=== PATIENT | male | born 1985 | race Two or more races ===

== ENCOUNTER 2022-04-23 03:08 | Inpatient (IN) | payer SELFPAY ==
[~2022-04-23] VITALS: Ht 172.7 cm; Wt 77.3 kg
[2022-04-23] MEDS ORDERED: pantoprazole 40 MG vial IV ONE (07:10)
[2022-04-23] MEDS ORDERED: normal saline 1000ML IV soln IVB ONE (07:10)
[2022-04-23] MEDS ORDERED: diazepam inj 5 MG/ML inj. IV ONE (07:10)
[2022-04-23] MEDS ORDERED: ondansetron/PF 4mg/2ml inj IV ONE (07:10)
[2022-04-23] MEDS: morphine 2 MG/ML inj. syringe IV PRN ×2 (07:17→07:44)
[2022-04-23] MEDS: pantoprazole 40MG/NS 100ML BAG 100 ML IV SCH (07:32)
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
--- NOTE | 2022-04-23 08:09 | NUR ---
PT IS URINATING AT THIS TIME,WILL CONT TO MONITOR .PAIN IS APPROVED AFTER THE MORPHINE DOSE.
[2022-04-23 08:55] LABS: CLARITY,URINE CLEAR (Clear); COLOR,URINE YELLOW (Yellow); GLUCOSE, URINE NEGATIVE (Neg); KETONES,URINE NEGATIVE (Neg); LEUKOCYTE ESTERASE ,URINE NEGATIVE (Neg); NITRITES, URINE NEGATIVE (Neg); OCCULT BLOOD,URINE NEGATIVE (Neg); PROTEIN,URINE NEGATIVE (Neg); UROBILINOGEN,URINE 0.2 E.U/dL (0.2-1.0)
[2022-04-23 08:59] LABS: UA COLLECTION TYPE VOIDED
[2022-04-23 09:04] LABS: BASOPHILS % (AUTO) 0.3 % (0-1); EOSINOPHILS # (AUTO) 0.2 X10'3 (0-0.9); HEMOGLOBIN 15.4 g/dl (14.0-17.9); LYMPHOCYTES % (AUTO) 15.8 % (21-51); MEAN CORPUSCULAR HEMOGLOBIN 28.3 PG (27.0-31.0); MEAN CORPUSCULAR HGB CONC 33.5 g/dL (33.0-36.5); MEAN CORPUSCULAR VOLUME 84.7 FL (78-98); MEAN PLATELET VOLUME 7.9 FL (7.4-10.4); MONOCYTES # (AUTO) 0.6 X10'3 (0-0.9); MONOCYTES % (AUTO) 9.8 % (2-12); NEUTROPHILS # (AUTO) 4.4 X10'3 (1.8-7.7); NEUTROPHILS % (AUTO) 71.1 % (42-75); PLATELET COUNT 229 X10'3 (140-440); RED BLOOD COUNT 5.44 X10'6 (4.70-6.10); WHITE BLOOD COUNT 6.2 X10'3 (4.5-11.0)
[2022-04-23 09:17] LABS: ALANINE AMINOTRANSFERASE 842 U/L (12-78); ALBUMIN 3.9 G/DL (3.4-5.0); ALBUMIN/GLOBULIN RATIO 1.2 (1.1-1.5); ALKALINE PHOSPHATASE 176 IU/L (46-116); ANION GAP 8 (8-16); ASPARTATE AMINO TRANSFERASE 708 U/L (10-37); BILIRUBIN,TOTAL 0.3 MG/DL (0.1-1.0); BLOOD UREA NITROGEN 6 MG/DL (7-18); BUN/CREATININE RATIO 7.8 (5.4-32.0); CALCIUM 8.9 MG/DL (8.5-10.1); CHLORIDE 103 MMOL/L (99-107); CREATININE 0.77 MG/DL (0.60-1.10); GLUCOSE 99 MG/DL (70-104); SODIUM 140 MMOL/L (135-145); TOTAL CARBON DIOXIDE 29.2 MMOL/L (24-32); TOTAL PROTEIN 7.2 G/DL (6.4-8.2); eGFR > 90 ML/MIN
[2022-04-23 09:32] LABS: POTASSIUM 4.6 MMOL/L (3.5-5.1)
[2022-04-23 09:33] LABS: LIPASE 3549 U/L (73-393)
[2022-04-23 09:33] LABS: URINE AMPHETAMINE SCREEN POSITIVE (Neg); URINE BARBITUATE SCREEN NEGATIVE (Neg); URINE BENZODIAZEPINES SCREEN NEGATIVE (Neg); URINE CANNABINOID SCREEN NEGATIVE (Neg); URINE COCAINE SCREEN NEGATIVE (Neg); URINE METHADONE SCREEN NEGATIVE (Neg); URINE OPIATE SCREEN POSITIVE (Neg); URINE PHENCYCLIDINE SCREEN NEGATIVE (Neg)
[2022-04-23] MEDS ORDERED: potassium CL 10mEq/100ml bag 100 ML IV PRN (10:15)
[2022-04-23] MEDS ORDERED: HYDROcodone/acetaminophen 5mg/325mg tablet PO PRN (10:15)
[2022-04-23] MEDS ORDERED: magnesium 4gm in 100ml NS 100 ML IV PRN (10:15)
[2022-04-23] MEDS ORDERED: acetaminophen 325mg tablet PO PRN (10:15)
[2022-04-23] MEDS ORDERED: ondansetron/PF 4mg/2ml inj IV PRN (10:15)
[2022-04-23] MEDS ORDERED: HYDROmorphone inj. 0.5 MG/0.5 ML DISP.SYRIN IV PRN (10:15)
[2022-04-23] MEDS ORDERED: mag hydrox/Alum hydrox/simeth 30ml oral suspension PO PRN (10:15)
[2022-04-23] MEDS ORDERED: POTASSIUM BICARB 20meq eff tab 20 MEQ TABLET.EFF PO PRN ×2 (10:15)
[2022-04-23] MEDS ORDERED: magnesium Cl slow-release 64mg tablet PO PRN (10:15)
[2022-04-23] MEDS ORDERED: magnesium hydroxide 30ml (MOM) UD suspension PO PRN (10:15)
[2022-04-23 10:26] LABS: ETHANOL < 0.010 GM/DL (0.0-0.010)
[2022-04-23] MEDS ORDERED: iohexol 350MG/ML 100ml bottle IV ONE (10:29)
[2022-04-23] MEDS: normal saline 1000ml 1,000 ML IV SCH ×2 (11:18→21:38)
[2022-04-23] MEDS ORDERED: NO HOME MEDS (17:30)
[2022-04-23] MEDS: docusate sod 100mg capsule PO SCH (21:37)
[2022-04-24] MEDS: normal saline 1000ml 1,000 ML IV SCH ×2 (06:15→19:11)
--- NOTE | 2022-04-24 06:47 | NUR ---
05:25 AM IV NS is still running, don't need a new bag.
[2022-04-24] MEDS: docusate sod 100mg capsule PO SCH ×2 (08:00→19:53)
[2022-04-24] MEDS: enoxaparin 40mg/0.4ml syringe SUBCUT SCH (08:00)
[2022-04-24] MEDS: pantoprazole 40MG/NS 100ML BAG 100 ML IV SCH (09:17)
--- NOTE | 2022-04-24 11:15 | NUR ---
PER MD STOCKTON HELD DT POSSIBLE SURGERY.
[2022-04-24 11:22] LABS: HEMOGLOBIN 14.5 g/dl (14.0-17.9); MEAN CORPUSCULAR VOLUME 83.6 FL (78-98); WHITE BLOOD COUNT 6.4 X10'3 (4.5-11.0)
[2022-04-24 11:24] LABS: BASOPHILS % (AUTO) 0.5 % (0-1); EOSINOPHILS # (AUTO) 0.5 X10'3 (0-0.9); EOSINOPHILS % (AUTO) 8.4 % (0-6); HEMATOCRIT 42.9 % (42.0-52.0); LYMPHOCYTES # (AUTO) 1.5 X10'3 (1.1-4.8); LYMPHOCYTES % (AUTO) 24.2 % (21-51); MEAN CORPUSCULAR HEMOGLOBIN 28.3 PG (27.0-31.0); MEAN CORPUSCULAR HGB CONC 33.8 g/dL (33.0-36.5); MEAN PLATELET VOLUME 7.6 FL (7.4-10.4); MONOCYTES # (AUTO) 0.4 X10'3 (0-0.9); MONOCYTES % (AUTO) 5.7 % (2-12); NEUTROPHILS # (AUTO) 3.9 X10'3 (1.8-7.7); NEUTROPHILS % (AUTO) 61.2 % (42-75); PLATELET COUNT 233 X10'3 (140-440); RED BLOOD COUNT 5.14 X10'6 (4.70-6.10)
[2022-04-24 11:36] LABS: ALANINE AMINOTRANSFERASE 403 U/L (12-78); ALBUMIN 3.5 G/DL (3.4-5.0); ALBUMIN/GLOBULIN RATIO 1.2 (1.1-1.5); ALKALINE PHOSPHATASE 157 IU/L (46-116); ANION GAP 9 (8-16); ASPARTATE AMINO TRANSFERASE 100 U/L (10-37); BILIRUBIN,TOTAL 0.4 MG/DL (0.1-1.0); BLOOD UREA NITROGEN 12 MG/DL (7-18); BUN/CREATININE RATIO 12.5 (5.4-32.0); CALCIUM 8.8 MG/DL (8.5-10.1); CHLORIDE 103 MMOL/L (99-107); CREATININE 0.96 MG/DL (0.60-1.10); GLUCOSE 83 MG/DL (70-104); LIPASE 93 U/L (73-393); MAGNESIUM 2.1 MG/DL (1.5-2.4); POTASSIUM 4.1 MMOL/L (3.5-5.1); SODIUM 142 MMOL/L (135-145); TOTAL PROTEIN 6.4 G/DL (6.4-8.2); eGFR 89 ML/MIN
[2022-04-24 14:00] VITALS: BP 107/64
--- NOTE | 2022-04-24 14:00 | NUR ---
Received to room 4010B Speaks some italian.
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
[2022-04-24 18:00] VITALS: BP 142/88
[2022-04-24] MEDS ORDERED: pneumococcal 23-VAL P-sac vacc 25 mcg/0.5ml vial IMVAC ONE (20:00)
[2022-04-24 22:00] VITALS: BP 128/77
[2022-04-25] VITALS (19 sets, daily range): BP systolic 105–153; BP diastolic 66–99
[2022-04-25] MEDS: normal saline 1000ml 1,000 ML IV SCH ×3 (05:20→22:15)
[2022-04-25 06:07] LABS: BASOPHILS % (AUTO) 0.3 % (0-1); EOSINOPHILS # (AUTO) 0.5 X10'3 (0-0.9); EOSINOPHILS % (AUTO) 7.1 % (0-6); HEMATOCRIT 43.4 % (42.0-52.0); HEMOGLOBIN 14.4 g/dl (14.0-17.9); LYMPHOCYTES % (AUTO) 27.7 % (21-51); MEAN CORPUSCULAR HEMOGLOBIN 28.1 PG (27.0-31.0); MEAN CORPUSCULAR HGB CONC 33.3 g/dL (33.0-36.5); MEAN CORPUSCULAR VOLUME 84.4 FL (78-98); MEAN PLATELET VOLUME 8.2 FL (7.4-10.4); MONOCYTES # (AUTO) 0.4 X10'3 (0-0.9); MONOCYTES % (AUTO) 5.6 % (2-12); NEUTROPHILS # (AUTO) 4.4 X10'3 (1.8-7.7); NEUTROPHILS % (AUTO) 59.3 % (42-75); PLATELET COUNT 256 X10'3 (140-440); RED BLOOD COUNT 5.14 X10'6 (4.70-6.10); RED CELL DISTRIBUTION WIDTH 13.7 % (11.5-14.5); WHITE BLOOD COUNT 7.4 X10'3 (4.5-11.0)
[2022-04-25 06:23] LABS: ALANINE AMINOTRANSFERASE 266 U/L (12-78); ALBUMIN 3.4 G/DL (3.4-5.0); ALBUMIN/GLOBULIN RATIO 1.2 (1.1-1.5); ALKALINE PHOSPHATASE 133 IU/L (46-116); ANION GAP 7 (8-16); ASPARTATE AMINO TRANSFERASE 39 U/L (10-37); BILIRUBIN,TOTAL 0.4 MG/DL (0.1-1.0); BLOOD UREA NITROGEN 10 MG/DL (7-18); BUN/CREATININE RATIO 13.9 (5.4-32.0); CALCIUM 8.4 MG/DL (8.5-10.1); CHLORIDE 109 MMOL/L (99-107); CREATININE 0.72 MG/DL (0.60-1.10); GLUCOSE 82 MG/DL (70-104); LIPASE 65 U/L (73-393); MAGNESIUM 1.9 MG/DL (1.5-2.4); POTASSIUM 4.1 MMOL/L (3.5-5.1); SODIUM 144 MMOL/L (135-145); TOTAL CARBON DIOXIDE 28.4 MMOL/L (24-32); TOTAL PROTEIN 6.2 G/DL (6.4-8.2); eGFR > 90 ML/MIN
--- NOTE | 2022-04-25 06:30 | NUR ---
Problems reprioritized. Patient report given, questions answered & plan of care reviewed with YULY Moreno. patient up to shower to prepare for sx.
[2022-04-25] MEDS: enoxaparin 40mg/0.4ml syringe SUBCUT SCH (08:00)
[2022-04-25] MEDS: docusate sod 100mg capsule PO SCH ×2 (08:00→20:00)
[2022-04-25] MEDS ORDERED: pneumococcal 23-VAL P-sac vacc 25 mcg/0.5ml vial IMVAC ONE (08:00)
[2022-04-25] MEDS ORDERED: BUPIVAcaine/PF 2.5 mg/ml (0.25%) 30ml vial ONE (14:56)
[2022-04-25] MEDS ORDERED: INDOCYANINE GREEN 25 MG/10 ML VIAL IV ONE (15:55)
[2022-04-25] MEDS ORDERED: ceFOXitin 2GM-NS 100mL ADDvant 100 ML IV ONE (16:20)
[2022-04-25] MEDS ORDERED: ringers solution, lacted 1,000 ML IV SCH (16:55)
[2022-04-25] MEDS ORDERED: neostigmine methylsulfate 1 MG/ML 10ml vial ONE ×2 (16:55→18:07)
[2022-04-25] MEDS ORDERED: proCHLORperazine 10 MG/2 ml inj IV PRN (16:55)
[2022-04-25] MEDS ORDERED: morphine 2 MG/ML inj. syringe IV PRN (16:55)
[2022-04-25] MEDS ORDERED: ondansetron/PF 4mg/2ml inj IV PRN (16:55)
[2022-04-25] MEDS ORDERED: meperidine/PF 25mg/ml syringe IV PRN ×2 (16:55)
[2022-04-25] MEDS ORDERED: sevoflurane 250ml liquid IH ONE (16:55)
[2022-04-25] MEDS ORDERED: fentaNYL /PF 50mcg/ml 5ml ampule ONE (16:56)
[2022-04-25] MEDS ORDERED: midazolam 1 mg/ML 2ml injection ONE (16:56)
[2022-04-25] MEDS ORDERED: propofol inj 20 ML IV ONE (16:57)
[2022-04-25] MEDS ORDERED: rocuronium 10mg/ml inj IV ONE ×2 (16:57→18:07)
[2022-04-25] MEDS ORDERED: LIDOcaine 2% (20mg/ml) 5ml vial ONE (16:57)
[2022-04-25] MEDS ORDERED: ondansetron/PF 4mg/2ml inj ONE (18:07)
[2022-04-25] MEDS ORDERED: dexamethasone sod phosphate 4mg/ml inj. ONE (18:07)
[2022-04-25] MEDS ORDERED: glycopyrrolate 0.2mg/ml inj ONE (18:07)
--- NOTE | 2022-04-25 18:10 | NUR ---
Patient in room ORTHO 4010. I have received report from Tiffanie EMERY and had the opportunity to ask questions and assume patient care. Patient is currently in the OR.
[2022-04-25] MEDS ORDERED: sugammadex 200mg/2ml injection IV ONE (18:24)
[2022-04-25] MEDS ORDERED: ePHEDrine 50MG/ML INJ. ONE (18:25)
[2022-04-25] MEDS ORDERED: naloxone 0.4 mg/ml inj IV PRN (18:40)
[2022-04-25] MEDS ORDERED: potassium CL 20mEq in D5-1/2NS 1,000 ML IV SCH (18:40)
--- NOTE | 2022-04-25 18:43 | NUR ---
Received from OR via HOSPITAL BED, accompanied by Anesthesiologist DR. HORN and report given by Anesthesiolgist. DR. LEIGH PRESENT. PATIENT VSS. SLIGHTLY HYPERTENSIVE 150'S. SATURATIONS 97% ON 10L MASK. ANTEIROR ABDMOEN WITH LARGE BANDAIDS X3 WITH SAM DRAIN ON RIGHT LATERAL ABDOMEN WITH BROWN/SEROSANG DRAINAGE. 18G PIV TO LEFT WRIST WITH LR RUNNING AT 100ML/HR. NONVERBAL PAIN 0/10.
[2022-04-25] MEDS ORDERED: 1/4 NS IV SCH (19:01)
[2022-04-25] MEDS ORDERED: POTASSIUM CL IV SCH (19:01)
[2022-04-25] MEDS ORDERED: DEXTROSE 5% IV SCH (19:01)
--- NOTE | 2022-04-25 19:20 | NUR ---
Received report from power and recovery supervisor Jessica.
[2022-04-25] MEDS: meperidine/PF 25mg/ml syringe IV PRN ×4 (19:22→19:37)
[2022-04-25] MEDS: morphine 4 MG/ML inj SYRINge IV PRN ×2 (19:43→19:48)
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
--- NOTE | 2022-04-25 20:00 | NUR ---
Patient arrived to floor from recovery via hospital bed. Patient sleeping at this time, eyes closed and respirations steady. Post -op vs initiated.
[2022-04-25] MEDS: DEXTROSE 5% IV SCH (21:32)
[2022-04-25] MEDS: 1/4 NS IV SCH (21:32)
[2022-04-25] MEDS: POTASSIUM CL IV SCH (21:32)
[2022-04-25] MEDS: ceFOXitin inj 1,000 MG in normal saline 100ml IV soln 100 ML IV SCH (23:12)
[2022-04-26] MEDS ORDERED: ceFOXitin 1 GM/D5W 50mL IVPB 50 ML IV SCH
[2022-04-26] MEDS: HYDROcodone/acetaminophen 10/325mg tab PO PRN ×2 (00:41→11:38)
[2022-04-26 02:00] VITALS: BP 124/69
[2022-04-26] MEDS: DEXTROSE 5% IV SCH ×3 (03:01→14:07)
[2022-04-26] MEDS: 1/4 NS IV SCH ×3 (03:01→14:07)
[2022-04-26] MEDS: POTASSIUM CL IV SCH ×3 (03:01→14:07)
[2022-04-26 06:00] VITALS: BP 123/79
--- NOTE | 2022-04-26 06:45 | NUR ---
Reported off to Arlene EMERY
[2022-04-26 06:55] LABS: BASOPHILS % (AUTO) 0.2 % (0-1); EOSINOPHILS % (AUTO) 0 % (0-6); HEMATOCRIT 45.6 % (42.0-52.0); HEMOGLOBIN 15.1 g/dl (14.0-17.9); LYMPHOCYTES % (AUTO) 7.9 % (21-51); MEAN CORPUSCULAR HEMOGLOBIN 27.8 PG (27.0-31.0); MEAN CORPUSCULAR VOLUME 84.1 FL (78-98); MONOCYTES # (AUTO) 0.5 X10'3 (0-0.9); NEUTROPHILS # (AUTO) 11.5 X10'3 (1.8-7.7); NEUTROPHILS % (AUTO) 87.9 % (42-75); PLATELET COUNT 272 X10'3 (140-440); RED BLOOD COUNT 5.42 X10'6 (4.70-6.10); RED CELL DISTRIBUTION WIDTH 13.8 % (11.5-14.5); WHITE BLOOD COUNT 13.1 X10'3 (4.5-11.0)
[2022-04-26 07:22] LABS: ALANINE AMINOTRANSFERASE 244 U/L (12-78); ALBUMIN 3.8 G/DL (3.4-5.0); ALBUMIN/GLOBULIN RATIO 1.2 (1.1-1.5); ALKALINE PHOSPHATASE 133 IU/L (46-116); ANION GAP 8 (8-16); ASPARTATE AMINO TRANSFERASE 54 U/L (10-37); BILIRUBIN,TOTAL 0.3 MG/DL (0.1-1.0); BLOOD UREA NITROGEN 10 MG/DL (7-18); BUN/CREATININE RATIO 11.4 (5.4-32.0); CALCIUM 8.9 MG/DL (8.5-10.1); CHLORIDE 103 MMOL/L (99-107); CREATININE 0.88 MG/DL (0.60-1.10); GLUCOSE 121 MG/DL (70-104); LIPASE 56 U/L (73-393); MAGNESIUM 2.1 MG/DL (1.5-2.4); POTASSIUM 4.6 MMOL/L (3.5-5.1); SODIUM 139 MMOL/L (135-145); TOTAL CARBON DIOXIDE 28.3 MMOL/L (24-32); eGFR > 90 ML/MIN
[2022-04-26] MEDS: enoxaparin 40mg/0.4ml syringe SUBCUT SCH (07:46)
[2022-04-26] MEDS: docusate sod 100mg capsule PO SCH ×2 (07:46→21:05)
[2022-04-26] MEDS: ceFOXitin inj 1,000 MG in normal saline 100ml IV soln 100 ML IV SCH (07:47)
[2022-04-26] MEDS: normal saline 1000ml 1,000 ML IV SCH ×2 (08:15→18:15)
[2022-04-26 18:00] VITALS: BP 124/82
--- NOTE | 2022-04-26 18:32 | NUR ---
Problems reprioritized. Patient report given, questions answered & plan of care reviewed with Rupa EMERY.
--- NOTE | 2022-04-26 18:40 | NUR ---
Patient in room ORTHO 4010. I have received report from Arlene EMERY and had the opportunity to ask questions and assume patient care.
[2022-04-26 22:00] VITALS: BP 113/68
[2022-04-27] MEDS: POTASSIUM CL IV SCH (03:01)
[2022-04-27] MEDS: 1/4 NS IV SCH (03:01)
[2022-04-27] MEDS: DEXTROSE 5% IV SCH (03:01)
[2022-04-27] MEDS: normal saline 1000ml 1,000 ML IV SCH (04:15)
[2022-04-27 06:00] VITALS: BP 111/76
[2022-04-27 06:42] LABS: BASOPHILS % (AUTO) 0.4 % (0-1); EOSINOPHILS # (AUTO) 0.3 X10'3 (0-0.9); EOSINOPHILS % (AUTO) 3.6 % (0-6); HEMATOCRIT 44.5 % (42.0-52.0); HEMOGLOBIN 14.9 g/dl (14.0-17.9); LYMPHOCYTES # (AUTO) 2.2 X10'3 (1.1-4.8); LYMPHOCYTES % (AUTO) 27.2 % (21-51); MEAN CORPUSCULAR HEMOGLOBIN 28.5 PG (27.0-31.0); MEAN CORPUSCULAR HGB CONC 33.5 g/dL (33.0-36.5); MEAN CORPUSCULAR VOLUME 85.1 FL (78-98); MEAN PLATELET VOLUME 7.9 FL (7.4-10.4); MONOCYTES # (AUTO) 0.5 X10'3 (0-0.9); MONOCYTES % (AUTO) 6.3 % (2-12); NEUTROPHILS % (AUTO) 62.5 % (42-75); PLATELET COUNT 240 X10'3 (140-440); RED BLOOD COUNT 5.23 X10'6 (4.70-6.10); RED CELL DISTRIBUTION WIDTH 13.8 % (11.5-14.5); WHITE BLOOD COUNT 7.9 X10'3 (4.5-11.0)
--- NOTE | 2022-04-27 06:50 | NUR ---
Patient in room ORTHO 4010. I have received report from YULY Goode and had the opportunity to ask questions and assume patient care.
--- NOTE | 2022-04-27 06:54 | NUR ---
Problems reprioritized. Patient report given, questions answered & plan of care reviewed with Rose Palma.
[2022-04-27 06:55] LABS: ALANINE AMINOTRANSFERASE 172 U/L (12-78); ALBUMIN 3.6 G/DL (3.4-5.0); ALBUMIN/GLOBULIN RATIO 1.2 (1.1-1.5); ALKALINE PHOSPHATASE 120 IU/L (46-116); ANION GAP 5 (8-16); ASPARTATE AMINO TRANSFERASE 28 U/L (10-37); BILIRUBIN,TOTAL 0.2 MG/DL (0.1-1.0); BLOOD UREA NITROGEN 17 MG/DL (7-18); BUN/CREATININE RATIO 19.8 (5.4-32.0); CALCIUM 8.7 MG/DL (8.5-10.1); CHLORIDE 105 MMOL/L (99-107); CREATININE 0.86 MG/DL (0.60-1.10); GLUCOSE 94 MG/DL (70-104); LIPASE 89 U/L (73-393); MAGNESIUM 2.1 MG/DL (1.5-2.4); POTASSIUM 4.4 MMOL/L (3.5-5.1); SODIUM 139 MMOL/L (135-145); TOTAL PROTEIN 6.7 G/DL (6.4-8.2); eGFR > 90 ML/MIN
[2022-04-27] MEDS: enoxaparin 40mg/0.4ml syringe SUBCUT SCH (09:27)
[2022-04-27] MEDS: docusate sod 100mg capsule PO SCH (09:27)
[2022-04-27 10:00] VITALS: BP 113/74
[2022-04-27] MEDS ORDERED: HYDR-3972 PO (11:03)
[2022-04-27] MEDS ORDERED: DOCU100C40 PO (11:03)
--- NOTE | 2022-04-27 15:47 | NUR ---
Pt discharged to home at 1530, with all belongings, in private vehicle accompanied by friend. Discharge instructions and mediations reviewed. New prescriptions printed and given to pt with instructions to take to pharmacy of choice to fill. Pt instructed to follow up with Dr Page in 1-2 week, office number provided. Signs/symptoms of infection reviewed, with instructions to contact Dr Page's office with any concerns. Pt states understanding and willingness to comply with all discharge instructions. IV DC'd, cannula intact. Pt escorted to front lobby by PCT.
== END 2022-04-27 15:30 | disposition home or self-care (01) | DRG 419 ==
LOC: ER 03:10 → ED HOLD 10:19 → EDBEDREQ 04-24 00:37 → ORTHO 4S 04-24 14:00
PROVIDERS: ADMIT Family Medicine; ATTEND Family Medicine
PROC: BW211ZZ Computerized Tomography (CT Scan) of Abdomen and Pelvis using Low Osmolar Contrast (ICD-10-PCS; 2022-04-23)
PROC: 0DNW4ZZ Release Peritoneum, Percutaneous Endoscopic Approach (ICD-10-PCS; 2022-04-25)
PROC: 8E0W4CZ Robotic Assisted Procedure of Trunk Region, Percutaneous Endoscopic Approach (ICD-10-PCS; 2022-04-25)
PROC: 3E0234Z Introduction of Serum, Toxoid and Vaccine into Muscle, Percutaneous Approach (ICD-10-PCS; 2022-04-25)
PROC: 0FT44ZZ Resection of Gallbladder, Percutaneous Endoscopic Approach (ICD-10-PCS; principal; 2022-04-25 16:55)
DX: K85.10 Biliary acute pancreatitis without necrosis or infection (principal); R74.01 Elevation of levels of liver transaminase levels; K80.20 Calculus of gallbladder without cholecystitis without obstruction; K66.0 Peritoneal adhesions (postprocedural) (postinfection); Z20.822 Contact with and (suspected) exposure to COVID-19; F14.90 Cocaine use, unspecified, uncomplicated; D72.829 Elevated white blood cell count, unspecified; F17.200 Nicotine dependence, unspecified, uncomplicated; Z83.3 Family history of diabetes mellitus; Z23 Encounter for immunization
CPT/HCPCS: 99285; Z7506; Z7508; 36415; 71045; 74177; 76700; 80053; 80305; 80320; 81003; 83690; 83735; 85025; 87081; 87635; 90732; A4215; A4618; A6212; A6402; A6449; A7000; C9113; G0378; J0694; J1100; J1650; J2175; J2250; J2270; J2405; J2704; J2710; J3010; J3360; J3480; J3490; J7030; J7042; J7120; Q9967